=== PATIENT | male | born 1950 | race Caucasian/White ===

== ENCOUNTER 2021-07-07 19:48 | Inpatient (IN) ==
[2021-07-07] MEDS ORDERED: 0.9 % Sodium Chloride 1,000 ML IVC ONE (21:32)
[2021-07-07 22:03] LABS: Basophils % 0.4 %; Hematocrit 38.2 % (37.5-50.1); Hemoglobin 13.4 g/dL (12.9-16.9); Immature Granulocytes % 0.4 % (0-4); Lymphocytes # 0.8 K/mcL (0.6-4.6); Lymphocytes % 15.6 %; Mean Corpuscular HGB Conc 35.1 g/dL (31.6-35.5); Mean Corpuscular Hemoglobin 29.3 pg (28.0-33.3); Mean Corpuscular Volume 83.6 fL (83.0-100.0); Monocytes # 0.6 K/mcL (0.0-1.3); Monocytes % 12.1 %; Neutrophils # 3.6 K/mcL (1.6-8.9); Platelet Count 155 K/mcL (140-400); Red Blood Count 4.57 M/mcL (4.19-5.50); Red Cell Distribution Width 12.2 % (11.5-14.5); Segmented Neutrophils % 71.5 %; White Blood Count 5.1 K/mcL (4.3-11.1)
[2021-07-07 22:12] LABS: Bilirubin,Urine Negative (Negative); Blood,Urine Negative (Negative); Clarity,Urine Clear (Clear); Color,Urine Colorless (Yellow); Glucose,Urine (UA) Normal (Normal); Ketones,Urine Negative (Negative); Leukocyte Esterase,Urine Negative (Negative); Nitrite,Urine Negative (Negative); PH,Urine 6.5 pH Units (5.0-8.0); Protein,Urine Negative (Neg-Trace); Specific Gravity,Urine 1.005 (1.010-1.025); Urobilinogen,Urine Normal (Normal)
[2021-07-07 22:25] LABS: Alanine Aminotransferase 16 Units/L (7-52); Albumin 3.8 g/dL (3.5-5.7); Albumin/Globulin Ratio 1.4 (1.1-2.2); Alkaline Phosphatase 76 Units/L (34-104); Aspartate Amino Transferase 30 Units/L (13-39); BUN/Creatinine Ratio 15 (6-26); Bilirubin,Direct 0.3 mg/dL (0.0-0.2); Bilirubin,Indirect 0.8 mg/dL (0.0-1.0); Bilirubin,Total 1.1 mg/dL (0.3-1.0); Blood Urea Nitrogen 10 mg/dL (8-23); Calcium 8.3 mg/dL (8.6-10.3); Carbon Dioxide 25 mEq/L (23-29); Chloride 92 mEq/L (98-107); Globulin 2.7 g/dL (2.4-3.5); Glucose 102 mg/dL (70-105); Lipase 15 Units/L (11-82); Osmolality,Calculated 263 (280-300); Potassium 3.7 mEq/L (3.5-5.1); Sodium 127 mEq/L (136-145); Total Protein 6.5 g/dL (6.4-8.9); Troponin I < 0.03 ng/mL (< 0.04); eGFR For African Americans > 60 (> 60); eGFR For Non-African Americans > 60 (> 60)
[2021-07-07 22:54] LABS: Influenza A PCR Negative (Negative); Influenza B PCR Negative (Negative); Resp. Syncytial Virus PCR Negative (Negative)
[2021-07-07 22:56] LABS: SARS-CoV-2 by PCR (In House) Positive (Negative)
[2021-07-07] MEDS ORDERED: Aspirin 325 MG TABLET PO ONE (23:24)
[2021-07-08] MEDS ORDERED: Acetaminophen 325 MG TABLET PO PRN (00:41)
[2021-07-08] MEDS ORDERED: Ondansetron 4 MG/2 ML VIAL IVP PRN (00:41)
[2021-07-08] MEDS ORDERED: Naloxone 0.4 MG/ML INJ IVP PRN (00:41)
[2021-07-08] MEDS ORDERED: Perflutren Lipid Microsphere 1.3 ML in 0.9 % Sodium Chloride 8.7 ML IVP PRN (00:44)
[2021-07-08 04:41] LABS: Amphetamine Screen,Urine Negative ng/mL (Cutoff=1000); Barbiturate Screen,Urine Negative ng/mL (Cutoff=200); Benzodiazepines Screen,Urine Negative ng/mL (Cutoff=200); Cannabinoid Screen,Urine Negative ng/mL (Cutoff = 50); Cocaine Screen,Urine Negative ng/mL (Cutoff= 300); Opiate Screen,Urine Negative ng/mL (Cutoff=300); Phencyclidine Screen,Urine Negative ng/mL (Cutoff=25)
[2021-07-08 04:53] LABS: Basophils % 0.2 %; Eosinophils % 0.2 %; Hematocrit 39.1 % (37.5-50.1); Hemoglobin 13.4 g/dL (12.9-16.9); Immature Granulocytes % 0.4 % (0-4); Lymphocytes # 1.3 K/mcL (0.6-4.6); Lymphocytes % 27.3 %; Mean Corpuscular HGB Conc 34.3 g/dL (31.6-35.5); Mean Corpuscular Hemoglobin 29.8 pg (28.0-33.3); Mean Corpuscular Volume 87.1 fL (83.0-100.0); Mean Platelet Volume 11.4 fL (9.4-12.4); Monocytes # 0.5 K/mcL (0.0-1.3); Monocytes % 10.2 %; Neutrophils # 2.9 K/mcL (1.6-8.9); Platelet Count 157 K/mcL (140-400); Red Blood Count 4.49 M/mcL (4.19-5.50); Red Cell Distribution Width 12.4 % (11.5-14.5); Segmented Neutrophils % 61.7 %; White Blood Count 4.6 K/mcL (4.3-11.1)
[2021-07-08 05:03] LABS: INR 1.2; Prothrombin Time 13.1 Seconds (9.4-12.1)
[2021-07-08] MEDS ORDERED: Menthol 1 EACH LOZENGE PO PRN (05:04)
[2021-07-08 05:10] LABS: Albumin 3.6 g/dL (3.5-5.7); Albumin/Globulin Ratio 1.2 (1.1-2.2); Bilirubin,Direct 0.3 mg/dL (0.0-0.2); Bilirubin,Indirect 0.6 mg/dL (0.0-1.0); Bilirubin,Total 0.9 mg/dL (0.3-1.0); Globulin 2.9 g/dL (2.4-3.5); Total Protein 6.5 g/dL (6.4-8.9)
[2021-07-08 05:16] LABS: BUN/Creatinine Ratio 13 (6-26); Blood Urea Nitrogen 9 mg/dL (8-23); Calcium 8.1 mg/dL (8.6-10.3); Carbon Dioxide 26 mEq/L (23-29); Chloride 99 mEq/L (98-107); Chol/HDL Ratio 2.6 (0-4.9); Cholesterol 102 mg/dL (< 200); Glucose 87 mg/dL (70-105); HDL Cholesterol 40 mg/dL (40-59); LDL Cholesterol,Calculated 50 mg/dL (< 100); Lactate Dehydrogenase 186 Units/L (140-271); Magnesium 2.3 mg/dL (1.6-2.6); Osmolality,Calculated 278 (280-300); Phosphorous 3.4 mg/dL (2.7-4.5); Potassium 3.5 mEq/L (3.5-5.1); Sodium 135 mEq/L (136-145); Triglycerides 58 mg/dL (< 150); eGFR For African Americans > 60 (> 60); eGFR For Non-African Americans > 60 (> 60)
[2021-07-08] MEDS: *HR* Enoxaparin 40 MG/0.4 ML SYRINGE SQ SCH (09:14)
[2021-07-08 09:59] LABS: C-Reactive Protein 69 mg/L (Less than 10)
[2021-07-08] MEDS: Loratadine 10 MG TABLET PO SCH (14:51)
[2021-07-08] MEDS ORDERED: Bismuth Subsalicylate 120 ML ORAL SUSPENSION PO PRN (22:40)
[2021-07-08] MEDS ORDERED: GuaiFENesin Liq 200 MG/10 ML UDC PO PRN (22:51)
[2021-07-08] MEDS ORDERED: Melatonin 3 MG TABLET PO PRN (22:51)
[2021-07-09 02:34] LABS: Alanine Aminotransferase 16 Units/L (7-52); Albumin 3.3 g/dL (3.5-5.7); Albumin/Globulin Ratio 1.2 (1.1-2.2); Alkaline Phosphatase 67 Units/L (34-104); Aspartate Amino Transferase 31 Units/L (13-39); BUN/Creatinine Ratio 16 (6-26); Bilirubin,Total 0.9 mg/dL (0.3-1.0); Blood Urea Nitrogen 10 mg/dL (8-23); Calcium 7.5 mg/dL (8.6-10.3); Carbon Dioxide 23 mEq/L (23-29); Chloride 92 mEq/L (98-107); Globulin 2.7 g/dL (2.4-3.5); Glucose 98 mg/dL (70-105); Osmolality,Calculated 257 (280-300); Potassium 3.3 mEq/L (3.5-5.1); Sodium 124 mEq/L (136-145); eGFR For African Americans > 60 (> 60); eGFR For Non-African Americans > 60 (> 60)
[2021-07-09 02:46] LABS: Basophils % 0.2 %; Hematocrit 37.7 % (37.5-50.1); Hemoglobin 12.8 g/dL (12.9-16.9); Immature Granulocytes % 0.5 % (0-4); Lymphocytes # 0.8 K/mcL (0.6-4.6); Lymphocytes % 13.1 %; Mean Corpuscular Volume 85.3 fL (83.0-100.0); Mean Platelet Volume 10.9 fL (9.4-12.4); Monocytes # 0.5 K/mcL (0.0-1.3); Monocytes % 9.2 %; Neutrophils # 4.5 K/mcL (1.6-8.9); Platelet Count 149 K/mcL (140-400); Red Blood Count 4.42 M/mcL (4.19-5.50); Red Cell Distribution Width 12.3 % (11.5-14.5); White Blood Count 5.9 K/mcL (4.3-11.1)
[2021-07-09] MEDS ORDERED: Metoclopramide 10 MG/2 ML VIAL IVP STA (07:44)
[2021-07-09] MEDS: Loratadine 10 MG TABLET PO SCH (08:25)
[2021-07-09] MEDS: *HR* Enoxaparin 40 MG/0.4 ML SYRINGE SQ SCH (08:25)
[2021-07-09] MEDS ORDERED: Cholecalciferol (D-3) 1,000 UNIT (25MCG) TABLET PO SCH (09:00)
[2021-07-09 10:34] VITALS: BP 110/98; PULSE 95; TEMP 99.4; O2SAT 94
== END 2021-07-09 14:47 | disposition home or self-care (01) | DRG 178 ==
LOC: EMEROOARM 19:48 → 3NENU 19:48 → SUATTDRO 07-08 00:41 → 3NENU 07-08 01:02
PROVIDERS: ADMIT Student in an Organized Health Care Education/Training Program; ATTEND Family Medicine